=== PATIENT | male | born 1935 | race Caucasian/White ===

== ENCOUNTER 2018-04-29 17:20 | Observation (INO) ==
--- NOTE | 2018-04-29 17:45 | ED ---
HPI General Chief Complaint: Recheck/Abnormal Lab/Rx Stated Complaint: High Bp/Shaking Time Seen by Provider: 04/29/18 17:30 Source: patient Mode of arrival: ambulatory Limitations: no limitations History of Present Illness HPI narrative: The patient is 82 years old he complains of hypertension today. Also describes of chest tightness for 3 days. There is no pleuritic or exertional component. No cough or fever. He reports her compliance with all medications including amlodipine. He denies any change in his baseline state of health otherwise. No recent illness. No change in diet. No extra cups of coffee or insomnia. He has no history of recent cardiac stress test. No history of coronary artery disease. Hyperlipidemia and hypertension reported otherwise. MD complaint: chest pain Complete Quality Measures for STEMI Alert Patients STEMI Alert: No Onset (ago): day(s) (3) Pain location: substernal Severity: mild Quality: tightness Related Data Home Medications Medication Instructions Recorded Confirmed alendronate 70 mg PO QWEEK 04/29/18 04/29/18 amlodipine 10 mg PO DAILY 04/29/18 04/29/18 aspirin [Aspirin Low Dose] 81 mg PO DAILY 04/29/18 04/29/18 omeprazole 40 mg PO DAILY 04/29/18 04/29/18 Allergies Allergy/AdvReac Type Severity Reaction Status Date / Time No Known Allergies Allergy Unverified 04/29/18 17:24 Review of Systems Except as stated in HPI: all other systems reviewed are negative Constitutional Denies fever(s) Respiratory Denies dyspnea PMFSH Medical History Medical History COPD (chronic obstructive pulmonary disease) (Acute) Hypertension (Acute) Sleep apnea (Acute) Surgical History Surgical History H/O hernia repair (Acute) Social History Social History Substance History: Active Abuse Smoking Status: Former smoker How Often Do You Have a Drink Containing Alcohol: 4 or more times a week Recent Travel in [facility] within the Last 8 Weeks: No Recent Out of Country Travel within the Last 8 Weeks: No Substance Abuse Detail Alcohol: Substance Use Status: Active Route Used 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 HEAD: Atraumatic. Normocephalic. EYES: Pupils equal and round. No scleral icterus. No injection or drainage. ENT: No nasal bleeding or discharge. Mucous membranes pink and moist. NECK: Trachea midline. No JVD. CARDIOVASCULAR: Regular rate and rhythm. No murmur appreciated. RESPIRATORY: No accessory muscle use. Clear to auscultation. Breath sounds equal bilaterally. GASTROINTESTINAL: Abdomen soft, non-tender, nondistended. Hepatic and splenic margins not palpable. MUSCULOSKELETAL: No obvious deformities. No clubbing. No cyanosis. No edema. NEUROLOGICAL: Awake and alert. No obvious cranial nerve deficits. Motor grossly within normal limits. Normal speech. PSYCHIATRIC: Appropriate mood and affect; insight and judgment normal. Course Reevaluation(s) Reevaluation #1: Patient reassessed and found to be resting comfortably. Blood pressure down about 140/60. Market subjective improvement reported. We will plan on a chest pain center evaluation given the age and risk factors including hypertension hyperlipidemia concurrent aspirin usage with mild chest tightness resolved after nitro. Time: 18:20 Initial Documented Vital Signs Temperature 98.5 F 04/29/18 17:24 Pulse Rate 113 H 04/29/18 17:24 Respiratory Rate 20 04/29/18 17:24 Blood Pressure 186/86 H 04/29/18 17:24 Pulse Oximetry 95 04/29/18 17:24 Last Documented Vital Signs Temperature 98.5 F 04/29/18 17:24 Pulse Rate 105 H 04/29/18 18:10 Respiratory Rate 22 04/29/18 18:10 Blood Pressure 142/65 H 04/29/18 18:10 Pulse Oximetry 98 04/29/18 18:10 Clinical Decision Support HEART Score Questions History: Moderately suspicious EKG: Normal Age: 65 years+ Risk Factors: 3 or more Risk Factors or Hx of Atherosclerotic Disease Initial Troponin: Normal Limit Heart Score HEART Score: 5 Medical Decision Making MDM Narrative Medical decision making narrative: The patient has a heart score of 5. He has no recent provocative study. Admission for chest pain center evaluation considered reasonable. Patient is quite agreeable with plan as well. Lab Data Lab results reviewed: Yes I reviewed the patient's lab results. Result diagrams: 04/29/18 17:50 04/29/18 17:50 Lab Results 04/29/18 04/29/18 04/29/18 Range/Units 17:50 17:50 17:50 CBC w Diff Auto diff final WBC 13.0 H (4.0-11.0) th/mm3 RBC 4.51 (4.50-5.90) mil/mm3 Hgb 14.5 (13.0-17.0) gm/dL Hct 42.8 (39.0-51.0) % MCV 94.9 (80.0-100.0) fL MCH 32.2 (27.0-34.0) pg MCHC 34.0 (32.0-36.0) % RDW 12.6 (11.6-17.2) % Plt Count 228 (150-450) th/mm3 MPV 8.4 (7.0-11.0) fL Neut % (Auto) 91.9 H (16.0-70.0) % Lymph % (Auto) 3.9 L (9.0-44.0) % [place] % (Auto) 3.1 (0.0-8.0) % Eos % (Auto) 0.4 (0.0-4.0) % Baso % (Auto) 0.7 (0.0-2.0) % Neut # (Auto) 11.9 H (1.8-7.7) th/mm3 Lymph # (Auto) 0.5 L (1.0-4.8) th/mm3 [place] # (Auto) 0.4 (0.0-0.9) th/mm3 Eos # (Auto) 0.1 (0.0-0.4) th/mm3 Baso # (Auto) 0.1 (0.0-0.2) th/mm3 WBC Differential . Differential Comment . PT 10.5 (9.8-11.6) sec INR 1.0 Ratio APTT 27.8 (24.3-30.1) sec Sodium (136-145) meq/L Potassium (3.5-5.1) meq/L Chloride (98-107) meq/L Carbon Dioxide (21.0-32.0) meq/L Anion Gap (5-15) meq/L BUN (7-18) mg/dL Creatinine (0.60-1.30) mg/dL Estimated GFR (>89) mL/min Random Glucose (74-106) mg/dL Calcium (8.5-10.1) mg/dL Magnesium (1.5-2.5) mg/dL Troponin I (0.02-0.05) ng/mL B-Natriuretic Peptide 22 (0-100) pg/mL 04/29/18 Range/Units 17:50 CBC w Diff WBC (4.0-11.0) th/mm3 RBC (4.50-5.90) mil/mm3 Hgb (13.0-17.0) gm/dL Hct (39.0-51.0) % MCV (80.0-100.0) fL MCH (27.0-34.0) pg MCHC (32.0-36.0) % RDW (11.6-17.2) % Plt Count (150-450) th/mm3 MPV (7.0-11.0) fL Neut % (Auto) (16.0-70.0) % Lymph % (Auto) (9.0-44.0) % [place] % (Auto) (0.0-8.0) % Eos % (Auto) (0.0-4.0) % Baso % (Auto) (0.0-2.0) % Neut # (Auto) (1.8-7.7) th/mm3 Lymph # (Auto) (1.0-4.8) th/mm3 [place] # (Auto) (0.0-0.9) th/mm3 Eos # (Auto) (0.0-0.4) th/mm3 Baso # (Auto) (0.0-0.2) th/mm3 WBC Differential Differential Comment PT (9.8-11.6) sec INR Ratio APTT (24.3-30.1) sec Sodium 135 L (136-145) meq/L Potassium 3.8 (3.5-5.1) meq/L Chloride 103 (98-107) meq/L Carbon Dioxide 24.6 (21.0-32.0) meq/L Anion Gap 7 (5-15) meq/L BUN 20 H (7-18) mg/dL Creatinine 1.30 (0.60-1.30) mg/dL Estimated GFR 53 L (>89) mL/min Random Glucose 107 H (74-106) mg/dL Calcium 9.7 (8.5-10.1) mg/dL Magnesium 2.0 (1.5-2.5) mg/dL Troponin I Less than 0.02 L (0.02-0.05) ng/mL B-Natriuretic Peptide (0-100) pg/mL Imaging Data Radiologist's impression: Chest X-Ray 04/29/18 17:39 CONCLUSION: Negative examination. ECG Data EKG Prior to Arrival: No Attestation: I personally reviewed and interpreted this ECG as follows: Interpretation: Sinus rhythm rate of 97 no acute ischemic injury pattern, intervals are normal axis is normal Discharge Plan Discharge Disposition Patient Disposition: 30 Still Patient Physicians Team ED Provider: Shelton Dc Primary Care Provider: Jovany Kinney Rxs /Orders / Referrals /Forms Prescriptions: No Action alendronate 70 mg Tablet 70 mg PO QWEEK RF: 0 omeprazole 40 mg Capsule,Delayed Release(Dr/Ec) 40 mg PO DAILY RF: 0 aspirin [Aspirin Low Dose] 81 mg Tablet,Delayed Release (Dr/Ec) 81 mg PO DAILY RF: 0 amlodipine 10 mg Tablet 10 mg PO DAILY RF: 0 Status ED Status: With Doctor
[2018-04-29 17:53] LABS: Baso # (Auto) 0.1 th/mm3 (0.0-0.2); Baso % (Auto) 0.7 % (0.0-2.0); Eos # (Auto) 0.1 th/mm3 (0.0-0.4); Eos % (Auto) 0.4 % (0.0-4.0); Hematocrit 42.8 % (39.0-51.0); Hemoglobin 14.5 gm/dL (13.0-17.0); Lymph # (Auto) 0.5 th/mm3 (1.0-4.8); Lymph % (Auto) 3.9 % (9.0-44.0); Mean Corpuscular Hemoglobin 32.2 pg (27.0-34.0); Mean Corpuscular Volume 94.9 fL (80.0-100.0); Mean Platelet Volume 8.4 fL (7.0-11.0); Mono # (Auto) 0.4 th/mm3 (0.0-0.9); Mono % (Auto) 3.1 % (0.0-8.0); Neut # (Auto) 11.9 th/mm3 (1.8-7.7); Neut % (Auto) 91.9 % (16.0-70.0); Platelet Count 228 th/mm3 (150-450); Red Blood Count 4.51 mil/mm3 (4.50-5.90); Red Cell Distribution Width 12.6 % (11.6-17.2)
[2018-04-29 17:59] LABS: Chloride 103 meq/L (98-107); Potassium 3.8 meq/L (3.5-5.1); Sodium 135 meq/L (136-145)
[2018-04-29 18:02] LABS: Anion Gap 7 meq/L (5-15); Blood Urea Nitrogen 20 mg/dL (7-18); Calcium 9.7 mg/dL (8.5-10.1); Carbon Dioxide 24.6 meq/L (21.0-32.0); Glucose,Random 107 mg/dL (74-106)
--- NOTE | 2018-04-29 18:03 | XR ---
EXAM DATE: 04/29/2018 6:00 PM EDT AGE/SEX: 82 years / Male INDICATIONS: Shortness of breath and elevated blood pressure. CLINICAL DATA: This is the patient's initial encounter. Patient reports that signs and symptoms have been present for 2 days and indicates a pain score of 0/10. MEDICAL/SURGICAL HISTORY: Chronic obstructive pulmonary disease. Hypertension. None. COMPARISON: No prior exams available for comparison. FINDINGS: A single AP view of the chest demonstrates the lungs to be symmetrically aerated without evidence of mass, infiltrate or effusion. The cardiomediastinal contours are unremarkable. Osseous structures a re intact. Aortic calcification. CONCLUSION: Negative examination. Electronically signed by: Ramy Garcia MD 04/29/2018 6:02 PM EDT
[2018-04-29 18:05] LABS: Activated Partial Thrombo Time 27.8 sec (24.3-30.1); Prothrombin Time 10.5 sec (9.8-11.6)
[2018-04-29 18:06] LABS: Glomerular Filtration Rate 53 mL/min (>89)
[2018-04-29] MEDS ORDERED: Acetaminophen 500 MG Tablet PO PRN (18:52)
[2018-04-29 21:42] LABS: Creatine Kinase 66 U/L (39-308)
--- NOTE | 2018-04-30 06:55 | P.HP ---
History of Present Illness Primary Care Physician: Jovany Kinney MD Chief Complaint: Chest pain, fatigue History of Present Illness: 82-year-old male with known history of hypertension, chronic obstructive pulmonary disease who presented to the hospital because of fatigue, lethargy, chest pain. Patient states that over the last few days he has not been feeling well. He has been more fatigued not really having that much energy. He states that he has had a cough with clear phlegm production. He indicates over the last 3 days he has been having intermittent chest pain located in left side of his chest radiating into his spine. There is no associated nausea, vomiting, diaphoresis, shortness of breath, dyspnea, lightheadedness, dizziness. Patient states that the pain lasts for a couple minutes at a time and resolves on its own. States it is worse whenever he gets up and exerts himself. Usually resolves when he stops exertion. Patient states that he had a stress test done approximately 20 years ago and it was normal. 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 Patient had workup done emergency department and workup was unremarkable. Patient was recommended to chest pain observation. Patient did start having fever this morning. No signs of infection have been identified thus far. Further workup will be needed. - Diagnosis (1) Systemic inflammatory response syndrome (2) Febrile illness (3) Chest pain (4) Leukocytosis Review of Systems All other systems reviewed negative except as stated in HPI Constitutional: Reports fatigue Cardiovascular: Reports chest pain Respiratory: Reports chest congestion, Reports cough PMFSH - History History Provided By: Patient - Medical History Medical History: Medical History (Last Reviewed 04/30/18 @ 06:41 by GONZALO Guevara) COPD (chronic obstructive pulmonary disease) Hypertension Sleep apnea - Surgical History Surgical History: Surgical History (Last Updated 04/30/18 @ 06:41 by GONZALO Guevara) H/O hernia repair History of appendectomy History of cataract surgery - Family History Family History: Family History (Last Updated 04/30/18 @ 06:43 by GONZALO Guevara) Other No pertinent family history - Tobacco History Second Hand Smoke Exposure: No Smoking Status: Former smoker Number of Pack Years (if former smoker): 20 - Alcohol History How Often Do You Have a Drink Containing Alcohol: 2 to 3 times a week - Substance Use History Substance History: No History of Abuse - Substance Use Type Alcohol Status: Active Route Used: By Mouth Frequency: 2 mixed drinks/daily - Travel History Recent Travel in the [place] Within the Last 8 Weeks: No Recent Travel Out of the Country Within the Last 8 Weeks: No - Immunization History Tetanus Immunization: <5 Years Hx Influenza Vaccine This Season: Yes Medications and Allergies Active Medications: Active Medications Acetaminophen (Tylenol) 500 mg PO Q4H PRN PRN Reason: HEADACHE Amlodipine Besylate (Norvasc) 10 mg PO DAILY [facility] Aspirin (Ecotrin) 81 mg PO DAILY [facility] Carvedilol (Coreg) 3.125 mg PO BID [facility] Last Admin: 04/29/18 20:58 Dose: 3.125 mg Nitroglycerin (Nitrostat Sl) 0.4 mg SL Q5M PRN PRN Reason: CHEST PAIN Pantoprazole Sodium (Protonix) 40 mg PO DAILY [facility] Sodium Chloride (Ns Flush) 2 ml IV.FLUSH UNSCH PRN PRN Reason: FLUSH AFTER USING IV ACCESS Sodium Chloride (Ns Flush) 2 ml IV.FLUSH BID [facility] Last Admin: 04/29/18 20:58 Dose: 2 ml Sodium Chloride (Ns Flush) 2 ml IV.FLUSH PRN PRN PRN Reason: FLUSH AFTER USING IV ACCESS Allergies Allergy/AdvReac Type Severity Reaction Status Date / Time No Known Allergies Allergy Unverified 04/29/18 17:24 Home Medications Medication Instructions Recorded Confirmed Type alendronate 70 mg PO QWEEK 04/29/18 04/29/18 History amlodipine 10 mg PO DAILY 04/29/18 04/29/18 History aspirin [Aspirin Low Dose] 81 mg PO DAILY 04/29/18 04/29/18 History omeprazole 40 mg PO DAILY 04/29/18 04/29/18 History Exam Vital signs: Vital Signs 04/29/18 17:24 04/29/18 17:45 04/29/18 18:10 Temperature 98.5 F Pulse Rate 113 H 106 H 105 H Respiratory Rate 20 22 Blood Pressure 186/86 H 142/65 H Pulse Oximetry 95 98 98 04/29/18 19:19 04/29/18 20:00 04/29/18 20:15 Temperature 97 F L Pulse Rate 95 H 113 H Respiratory Rate 20 20 Blood Pressure 158/64 H 159/83 H Pulse Oximetry 98 94 L 94 L 04/29/18 23:44 04/29/18 23:49 04/30/18 02:36 Temperature 100.3 F H Pulse Rate 98 H Respiratory Rate 20 Blood Pressure 135/72 Pulse Oximetry 94 L 94 L 94 L 04/30/18 04:00 Temperature 100.6 F H Pulse Rate 83 Respiratory Rate 20 Blood Pressure 119/65 Pulse Oximetry 94 L Intake & Output 04/29/18 04/29/18 04/30/18 06:59 18:59 06:59 Intake Total 320 / 320 Output Total 275 / 275 Balance 45 / 45 Weight 101.5 kg 100.2 kg Intake: Oral 320 / 320 Output: Urine 275 / 275 Other: # Voids 1 Weight On Admission 101.7 kg Narrative: GENERAL: Well-developed, well-nourished, in no acute distress. alert and orientated HEENT: Head is normocephalic without any lesions or masses noted. Facial features are symmetric. Eyes: Pupils equal round reactive to light. Extraocular muscles are intact. Conjunctivae were clear. Oropharyngeal: Pharynx without any erythema edema. Tongue is midline without deviation. Buccal mucosa is moist without any masses or lesions NECK: Supple without any masses. Trachea midline no deviation. No JVD, no bruits are appreciated CARDIAC: Regular rhythm, regular rate. S1/S2 are heard. No murmurs gallops or rubs. LUNGS: Clear to auscultation bilaterally. No wheeze, rhonchi or rales. No use of accessory muscles on inspiration or expiration. ABDOMEN: Soft, nontender. Nondistended. Bowel sounds heard in all 4 quadrants. No organomegaly or masses. Negative rebound, negative guarding EXTREMITIES: No edema, pulses are equal bilaterally. No cyanosis or clubbing NEUROLOGY: Mood and affect appear appropriate. Cranial nerves II through XII grossly intact. Muscle strength 5/5 in upper and lower extremities bilaterally. Deep tendon reflexes are 2+ in upper and lower extremities bilaterally. Results - Labs CBC & Chem 7: 04/29/18 17:50 04/29/18 17:50 Labs: Laboratory Results - last 24 hr 04/29/18 04/29/18 04/29/18 17:50 17:50 17:50 CBC w Diff Auto diff final WBC 13.0 H RBC 4.51 Hgb 14.5 Hct 42.8 MCV 94.9 MCH 32.2 MCHC 34.0 RDW 12.6 Plt Count 228 MPV 8.4 Neut % (Auto) 91.9 H Lymph % (Auto) 3.9 L [place] % (Auto) 3.1 Eos % (Auto) 0.4 Baso % (Auto) 0.7 Neut # (Auto) 11.9 H Lymph # (Auto) 0.5 L [place] # (Auto) 0.4 Eos # (Auto) 0.1 Baso # (Auto) 0.1 WBC Differential . Differential Comment . PT 10.5 INR 1.0 APTT 27.8 Sodium Potassium Chloride Carbon Dioxide Anion Gap BUN Creatinine Estimated GFR Random Glucose Calcium Magnesium Total Creatine Kinase Troponin I B-Natriuretic Peptide 22 04/29/18 04/29/18 04/30/18 17:50 20:58 00:30 CBC w Diff WBC RBC Hgb Hct MCV MCH MCHC RDW Plt Count MPV Neut % (Auto) Lymph % (Auto) [place] % (Auto) Eos % (Auto) Baso % (Auto) Neut # (Auto) Lymph # (Auto) [place] # (Auto) Eos # (Auto) Baso # (Auto) WBC Differential Differential Comment PT INR APTT Sodium 135 L Potassium 3.8 Chloride 103 Carbon Dioxide 24.6 Anion Gap 7 BUN 20 H Creatinine 1.30 Estimated GFR 53 L Random Glucose 107 H Calcium 9.7 Magnesium 2.0 Total Creatine Kinase 66 Troponin I Less than 0.02 L Less than 0.02 L Less than 0.02 L B-Natriuretic Peptide - Imaging Impressions Chest X-Ray 04/29/18 17:39 CONCLUSION: Negative examination. Caprini VTE Risk Assessment Caprini VTE Risk Assessment: Moderate/High Risk (score >= 2) Caprini Risk Assessment Model: Point Value = 1 Point Value = 2 Point Value = 3 Point Value = 5 Age 41-60 Minor surgery BMI > 25 kg/m2 Swollen legs Varicose veins or History of unexplained or recurrent spontaneous Oral contraceptives or hormone replacement Sepsis (< 1 month) Serious lung disease, including pneumonia (< 1 month) Abnormal pulmonary function Acute myocardial infarction Congestive heart failure (< 1 month) History of inflammatory bowel disease Medical patient at bed rest Age 61-74 Arthroscopic surgery Major open surgery (> 45 min) Laparoscopic surgery (> 45 min) Malignancy Confined to bed (> 72 hours) Immobilizing plaster cast Central venous access Age >= 75 History of VTE Family history of VTE Factor V Leiden Prothrombin [id number] Lupus anticoagulant Anticardiolipin antibodies Elevated serum homocysteine Heparin-induced thrombocytopenia Other congenital or acquired thrombophilia Stroke (< 1 month) Elective arthroplasty Hip, pelvis, or leg fracture Acute spinal cord injury (< 1 month) Prophylaxis Regimen: Total Risk Factor Score Risk Level Prophylaxis Regimen 0-1 Low Early ambulation 2 Moderate Order ONE of the following: *Sequential Compression Device (SCD) *Heparin 5000 units SQ BID 3-4 Higher Order ONE of the following medications: *Heparin 5000 units SQ TID *Enoxaparin/Lovenox 40 mg SQ daily (WT < 150 kg, CrCl > 30 mL/min) *Enoxaparin/Lovenox 30 mg SQ daily (WT < 150 kg, CrCl > 10-29 mL/min) *Enoxaparin/Lovenox 30 mg SQ BID (WT < 150 kg, CrCl > 30 mL/min) AND/OR *Sequential Compression Device (SCD) 5 or more Highest Order ONE of the following medications: *Heparin 5000 units SQ TID (Preferred with Epidurals) *Enoxaparin/Lovenox 40 mg SQ daily (WT < 150 kg, CrCl > 30 mL/min) *Enoxaparin/Lovenox 30 mg SQ daily (WT < 150 kg, CrCl > 10-29 mL/min) *Enoxaparin/Lovenox 30 mg SQ BID (WT < 150 kg, CrCl > 30 mL/min) AND *Sequential Compression Device (SCD) Assessment and Plan - Assessment (1) Systemic inflammatory response syndrome Code(s): R65.10 - Systemic inflammatory response syndrome (SIRS) of non- infectious origin without acute organ dysfunction Status: Acute (2) Febrile illness Code(s): R50.9 - Fever, unspecified Status: Acute (3) Chest pain Code(s): R07.9 - Chest pain, unspecified Status: Acute (4) Leukocytosis Code(s): D72.829 - Elevated white blood cell count, unspecified Status: Acute - Plan Systemic inflammatory response syndrome -Patient with febrile illness, leukocytosis, tachycardia. No infectious source has been identified thus far -Obtain blood cultures, urinalysis with culture if needed, influenza testing. -Given the patient's symptoms and risk factors will obtain stat d-dimer and possible pulmonary angiogram if needed -Await antibiotic treatment until infectious source has been identified Chest pain -Patient with exertional chest discomfort radiating into his spine, patient with increased risk factors include age, male, hypertension, history of tobacco use -Patient has been ruled out for acute coronary event with serial cardiac enzymes that are negative -Serial EKGs reviewed by myself that does show sinus tachycardia without any T- wave abnormalities or any acute changes -We will need to rule the patient out for any acute infectious source and/or acute pulmonary etiology. If those have been ruled out could anticipate doing myocardial perfusion study to rule out his exertional chest pain -Patient continued on aspirin, nitroglycerin, beta-tracey, Norvasc -Continue monitor telemetry Chronic obstructive pulmonary disease -May use oxygen to maintain O2 sats greater than 92% -Duo nebs as needed Hypertension -Accelerated on presentation -Continue home medications DVT prevention -Sequential compression devices
[2018-04-30 08:34] LABS: Baso % (Auto) 0.2 % (0.0-2.0); Eos % (Auto) 0.2 % (0.0-4.0); Hematocrit 39.9 % (39.0-51.0); Hemoglobin 13.3 gm/dL (13.0-17.0); Lymph # (Auto) 0.7 th/mm3 (1.0-4.8); Lymph % (Auto) 5.7 % (9.0-44.0); Mean Corpuscular HGB Conc 33.3 % (32.0-36.0); Mean Corpuscular Hemoglobin 31.4 pg (27.0-34.0); Mean Corpuscular Volume 94.1 fL (80.0-100.0); Mean Platelet Volume 8.6 fL (7.0-11.0); Mono % (Auto) 8.5 % (0.0-8.0); Neut # (Auto) 9.7 th/mm3 (1.8-7.7); Neut % (Auto) 85.4 % (16.0-70.0); Platelet Count 197 th/mm3 (150-450); Red Blood Count 4.24 mil/mm3 (4.50-5.90); White Blood Count 11.4 th/mm3 (4.0-11.0)
[2018-04-30] MEDS: amLODIPine 10 MG Tablet PO SCH (09:10)
[2018-04-30 10:52] LABS: Bilirubin,Urine Negative (Negative); Clarity,Urine Clear (Clear); Color,Urine Yellow (Yellw/Straw); Glucose,Urine (UA) Negative (Negative); Leukocyte Esterase,Urine Negative (Negative); Nitrite,Urine Negative (Negative); PH,Urine 7.5 (5.0-8.5)
[2018-04-30 11:34] LABS: Squamous Epithelial Cell,Urine 0-5 /hpf (0-5)
--- NOTE | 2018-04-30 13:36 | ECG ---
Date Performed: 04/29/2018 Time Performed: 17:51:01 PTAGE: 82 years EKG: Sinus rhythm NORMAL ECG NO PREVIOUS TRACING DOCTOR: Tee Atkins Interpretating Date/Time 04/30/2018 13:34:00
--- NOTE | 2018-04-30 13:47 | ECG ---
Date Performed: 04/30/2018 Time Performed: 00:12:51 PTAGE: 82 years EKG: Sinus rhythm WITH FREQUENT SUPRAVENTRICULAR PREMATURE COMPLEXES ABNORMAL RHYTHM ECG Since the PREVIOUS TRACING , no significant change noted PREVIOUS TRACIN04/29/2018 21.05 DOCTOR: Tee Atkins Interpretating Date/Time 04/30/2018 13:45:12
--- NOTE | 2018-04-30 13:47 | ECG ---
Date Performed: 04/29/2018 Time Performed: 21:05:16 PTAGE: 82 years EKG: SINUS TACHYCARDIA ABNORMAL RHYTHM ECG Since the PREVIOUS TRACING , no significant change noted PREVIOUS TRACIN04/29/2018 17.51 DOCTOR: Tee Atkins Interpretating Date/Time 04/30/2018 13:45:20
[2018-04-30] MEDS ORDERED: Regadenoson Inj 0.4 MG/5 ML Syringe IV.PUSH ONE (15:44)
--- NOTE | 2018-04-30 17:18 | NM ---
EXAM DATE: 04/30/2018 5:13 PM EDT AGE/SEX: 82 years / Male INDICATIONS:Angina. . Left sided chest pain for three days. CLINICAL DATA: This is the patient's initial encounter. Patient reports that signs and symptoms have been present for 3 days and indicates a pain score of 4/10. MEDICAL/SURGICAL HISTORY: Chronic obstructive pulmonary disease. Hypertension. Inguinal hernia repair. Appendectomy. COMPARISON: [facility], [facility] MYOCARDIAL PERFUSION, GATED (LEXISCAN), 11/25/2014. . No external comparison. DOSE: 10.9 mCi Tc 99m Myoview at rest 35.0 mCi [id number] at stress 0.4 mg Lexiscan STRESS SYMPTOMS: Dizziness. EJECTION FRACTION: 67 % TECHNIQUE: The patient underwent pharmacologic stress with infusion of prescribed dose. Continuous ECG tracing was monitored during stress. Gated SPECT imaging was performed after stress and conventi onal SPECT imaging was performed at rest. The examination was performed on a SPECT/CT scanner, both attenuation and non-corrected datasets were reviewed. FINDINGS: Distribution: The maximum perfused segment at stress is in the lateral wall. Perfusion Study: The pattern of perfusion at stress is within normal limits. Gated Study: There are intact wall motion and wall thickening without hypokinetic or dyskinetic segm ents. The ejection fraction is calculated at 67%. RISK CATEGORY: Low (<1% Annual Motality Rate) CONCLUSION: 1. No evidence to suggest ischemic myocardial changes. No significant changes compared to the prior study. Electronically signed by: Edwin Mari MD 04/30/2018 5:17 PM EDT
--- NOTE | 2018-05-01 08:50 | P.PN ---
Subjective Interval history: 82-year-old male who is seen and examined today in follow-up for chest pain, fever. Patient is doing much better. Patient has remained afebrile. Patient denies any recurrent chest pain. Patient is very eager to go home. Vital signs have remained stable. Physical Exam Vital signs: Vital Signs 04/30/18 11:23 04/30/18 13:52 04/30/18 17:51 Temperature 98.6 F 97.3 F L Pulse Rate 85 71 80 Respiratory Rate 20 16 Blood Pressure 144/68 H 137/67 Pulse Oximetry 93 L 94 L 04/30/18 20:00 05/01/18 00:00 05/01/18 04:00 Temperature 96.9 F L 96.2 F L 96.4 F L Pulse Rate 65 73 72 Respiratory Rate 20 20 20 Blood Pressure 148/81 H 133/80 148/81 H Pulse Oximetry 95 97 97 Intake & Output 04/30/18 05/01/18 05/01/18 18:59 06:59 18:59 Intake Total 400 / 400 60 / 60 Balance 400 / 400 60 / 60 Weight 99.3 kg Intake: Oral 400 / 400 60 / 60 Other: # Voids 3 3 Narrative: GENERAL: Well-developed, well-nourished, in no acute distress. alert and orientated HEENT: Head is normocephalic without any lesions or masses noted. Facial features are symmetric. Eyes: Extraocular muscles are intact. Conjunctivae were clear. NECK: Supple without any masses. Trachea midline no deviation. No JVD, CARDIAC: Regular rhythm, regular rate. S1/S2 are heard. No murmurs gallops or rubs. LUNGS: Clear to auscultation bilaterally. No wheeze, rhonchi or rales. No use of accessory muscles on inspiration or expiration. ABDOMEN: Soft, nontender. Nondistended. Bowel sounds heard in all 4 quadrants. No organomegaly or masses. Negative rebound, negative guarding EXTREMITIES: No edema, pulses are equal bilaterally. No cyanosis or clubbing NEUROLOGY: Mood and affect appear appropriate. Cranial nerves II through XII grossly intact. Moving all extremities, speech is clear Results - Labs CBC & Chem 7: 04/30/18 07:30 04/29/18 17:50 Laboratory Results - last 24 hr 04/30/18 10:30 Ur Collection Type Clean catch Urine Color Yellow Urine Clarity Clear Urine pH 7.5 Ur Specific [place] 1.010 Urine Protein Trace Urine Glucose (UA) Negative Urine Ketones Negative Urine Occult Blood Negative Urine Nitrate Negative Urine Bilirubin Negative Urine Urobilinogen 2.0 H Ur Leukocyte Esterase Negative Ur Squamous Epith Cells 0-5 Micro UA Comment Culture not ind Urine Culture Comments Culture not ind Microbiology 04/30/18 10:40 Nasal Wash Influenza Types A,B Antigen - Final Negative for FLU A and B antigen Infection due to influenza A or B cannot be ruled out since the antigen present in the sample may be below the detection limit of the test. - Imaging Impressions Myocardial Perfusion Scan Nuc Med 04/30/18 13:38 CONCLUSION: 1. No evidence to suggest ischemic myocardial changes. No significant changes compared to the prior study. Assessment and Plan - Assessment (1) Systemic inflammatory response syndrome Code(s): R65.10 - Systemic inflammatory response syndrome (SIRS) of non- infectious origin without acute organ dysfunction Status: Acute (2) Febrile illness Code(s): R50.9 - Fever, unspecified Status: Acute (3) Chest pain Code(s): R07.9 - Chest pain, unspecified Status: Acute (4) Leukocytosis Code(s): D72.829 - Elevated white blood cell count, unspecified Status: Acute - Plan Systemic inflammatory response syndrome, resolved -Patient with febrile illness, leukocytosis, tachycardia. No infectious source has been identified thus far -Blood cultures are pending -Urinalysis was clear, influenza testing was negative -d-dimer was done which was negative Chest pain -Patient with exertional chest discomfort radiating into his spine, patient with increased risk factors include age, male, hypertension, history of tobacco use -Patient has been ruled out for acute coronary event with serial cardiac enzymes that are negative -Serial EKGs reviewed by myself that does show sinus tachycardia without any T- wave abnormalities or any acute changes -Patient was ruled out for any acute coronary event. Pursued provocative testing -Myocardial perfusion study was negative for any ischemia, low risk -Patient continued on aspirin, nitroglycerin, beta-tracey, Norvasc -Continue monitor telemetry Chronic obstructive pulmonary disease -May use oxygen to maintain O2 sats greater than 92% -Duo nebs as needed Hypertension -Accelerated on presentation -Continue home medications DVT prevention -Sequential compression devices Discharge Planning: Discharge home in stable condition Activity: Ad isabella. Diet: Healthy heart diet Medication per medication reconciliation Follow-up with primary medical doctor in 1 week
[2018-05-01 09:00] VITALS: BP 152/87; PULSE 82; RESP 18; TEMP 96; O2SAT 98
[2018-05-01] MEDS: amLODIPine 10 MG Tablet PO SCH (09:28)
--- NOTE | 2018-05-01 14:00 | TR ---
Date Performed: 04/30/2018 Time Performed: 15:55:09 DOCTOR: Elio Fallon DRUG LIST: CLINICAL HISTORY: CHEST PAIN REASON FOR TEST: Chest pain REASON FOR ENDING: OBSERVATION: CONCLUSION: COMMENTS: Lexiscan stress test was performed under standard four minute protocol. Radionuclide was injected one minute prior to ending the test. No electrocardiographic abormalities were present t o suggest ischemia. Nuclear imaging and interpretation are pending.
== END 2018-05-01 10:16 | disposition home or self-care (01) ==
LOC: PHEDA 17:20 → PH3 17:20 → PHED 17:20 → PH3 20:12
PROVIDERS: ADMIT Family Medicine; ATTEND Family Medicine
DX: Z87.891 Personal history of nicotine dependence; Z79.82 Long term (current) use of aspirin; I10 Essential (primary) hypertension; R07.9 Chest pain, unspecified; D72.829 Elevated white blood cell count, unspecified; R65.10 Systemic inflammatory response syndrome (SIRS) of non-infectious origin without acute organ dysfunction; Z79.83 Long term (current) use of bisphosphonates; R00.0 Tachycardia, unspecified; R94.31 Abnormal electrocardiogram [ECG] [EKG]; J44.9 Chronic obstructive pulmonary disease, unspecified; Z90.49 Acquired absence of other specified parts of digestive tract; G47.30 Sleep apnea, unspecified; E78.5 Hyperlipidemia, unspecified